=== PATIENT | male | born 1960 | race Caucasian/White ===

== ENCOUNTER 2017-03-03 04:18 | Emergency (ER) | payer OTHER | END 2017-03-03 08:15 | disposition home or self-care (01) | LOC: ER 04:18 | DX: R07.89 Other chest pain (principal); F41.9 Anxiety disorder, unspecified; R11.0 Nausea; I10 Essential (primary) hypertension; E78.5 Hyperlipidemia, unspecified; K21.9 Gastro-esophageal reflux disease without esophagitis; E11.9 Type 2 diabetes mellitus without complications; I25.10 Atherosclerotic heart disease of native coronary artery without angina pectoris; Z87.891 Personal history of nicotine dependence; Z79.899 Other long term (current) drug therapy; Z79.4 Long term (current) use of insulin | CPT/HCPCS: 36415; 96365; 96366; 96375; J0360 ==

== ENCOUNTER 2017-03-05 18:46 | Emergency (ER) | payer OTHER | END 2017-03-05 19:06 | disposition left against medical advice (07) | LOC: ER 18:46 | DX: Z53.21 Procedure and treatment not carried out due to patient leaving prior to being seen by health care provider (principal) ==